=== PATIENT | male | born 1930 | race Caucasian/White ===

== ENCOUNTER → 2017-09-13 | Outpatient (REF) ==
[~2017-09-13] MED LIST: ARICEPT10 MG PO; AZILECT1 MG PO; FLOMAX 0.40.4 MG/CAP PO; LINSEED OIL 1 ML1 ML; PARCOPA 25/101 UDTAB NG; PARCOPA 25/101 UDTAB PO; PHARMASSURE SA160 MG PO; REQUIP4 MG PO; SINEMET 25/101 UDTAB PO
== END ==
LOC: ZLAB.WCH 10:22
DX: Z01.89 Encounter for other specified special examinations (principal)